=== PATIENT | male | born 2000 | race African-American/Black ===

== ENCOUNTER 2022-10-15 02:41 | Emergency (ER) | payer SELFPAY ==
[2022-10-15 02:55] VITALS: BP 133/107; PULSE 89; RESP 15; TEMP 36.4; O2SAT 98
--- NOTE | 2022-10-15 02:56 | ED.PSYCH ---
HPI - Psych General Chief Complaint: Psychiatric Symptoms Stated Complaint: psych symptoms Time Seen by Provider: 10/15/22 02:42 History of Present Illness HPI Narrative: Patient with reported history of schizophrenia presenting with agitation, found by neighbors wandering the streets, yelling about Syd. Per neighbors, does not take his medications and tries to self medicate. Per patient, he has no complaints and the police sabotaged him and that is why he is here but he does not want to be here. He does not take any medications Review of Systems Review of Systems: CONST: No fever. HEENT: No sore throat C/V: No chest pain RESP: No difficulty breathing GI: No abdominal pain M/S: No joint pain. : No dysuria SKIN: No rash. NEURO: [No headache] PSYCH: [No SI/HI or hallucinations] [facility] Past Medical History Medical History (Updated 10/15/22 @ 05:16 by Lakisha Carrero MD) Schizophrenia Social History Social History Substance use type: does not use Exam Narrative: EXAMINATION OF ORGAN SYSTEMS/BODY AREAS: Constitutional: Vital signs per nursing GENERAL:[No acute distress, non-toxic appearing.] HEAD: Normal with no signs of head trauma. EYES: EOMI, conjunctiva normal ENT: Hearing grossly intact LUNGS: Nonlabored breathing. HEART: [Regular rate and rhythm] ABD: No distension EXT: Normal range of motion SKIN: [No rashes or lesions.] NEURO: [Alert and oriented x 3. No gross focal sensory or strength deficits.] PSYCH: Initially agitated with pressured speech wanting to spread word of Syd, then calm and cooperative, answering questions appropriately. Course Vital Signs Vital signs: Vital Signs Temperature 97.6 F 10/15/22 02:55 Pulse Rate 89 10/15/22 02:55 Respiratory Rate 15 10/15/22 02:55 Blood Pressure 133/107 H 10/15/22 02:55 Pulse Oximetry 98 10/15/22 02:55 Oxygen Delivery Room Air 10/15/22 02:55 Temperature 97.6 F 10/15/22 02:55 Pulse Rate 89 10/15/22 02:55 Respiratory Rate 15 10/15/22 02:55 Blood Pressure 133/107 H 10/15/22 02:55 Pulse Oximetry 98 10/15/22 02:55 Oxygen Delivery Room Air 10/15/22 02:55 MDM - Psych MDM Narrative Medical decision making narrative: ED COURSE AND MEDICAL DECISION MAKINyoM here for psychiatric evaluation. Patient with history of schizophrenia. No focal neurological deficits on exam. Psych labs are ordered and essentially unremarkable. Psychiatric team is consulted and the patient is medically cleared for psych evaluation and disposition. At this time, patient said he does not want to be seen by crisis and he wants to go home, he states that his ride is here. He is not having thoughts of hurting himself, he is answering questions appropriately, does not appear to be acutely psychotic at this time and I cannot hold him against his will. I have let him know that he can always return for any further issues. Lab Data 10/15/22 03:05 10/15/22 03:05 Labs: Lab Results 10/15/22 10/15/22 10/15/22 Range/Units 03:05 03:05 03:05 WBC 6.0 (4.5-10.0) K/mm3 RBC 4.67 (4.6-6.20) M/mm3 Hgb 14.3 (14.0-18.0) g/dL Hct 42.4 (42.0-52.0) % MCV 90.8 (80-100) fl MCH 30.6 (26-34) pg MCHC 33.7 (32-36) g/dl RDW 13.1 (11.5-14.5) % Plt Count 240 (150-375) k/mm3 MPV 11.0 H (7.4-10.4) fl Immature Gran % (Auto) 0.2 (0-0.5) % Neut % (Auto) 53.5 (45.5-73.1) % Lymph % (Auto) 33.9 (18.3-44.2) % Blaine % (Auto) 10.8 H (2.6-8.5) % Eos % (Auto) 1.3 (0-4.4) % Baso % (Auto) 0.3 (0.2-1.2) % Lymph # (Auto) 2.04 (0.9-3.2) K/mm3 Blaine # (Auto) 0.7 H (0.1-0.6) K/mm3 Eos # (Auto) 0.1 (0-0.3) K/mm3 Baso # (Auto) 0.0 (0.0-0.1) K/mm3 Abs Immat Gran (auto) 0.01 (0.00-0.031) K/mm3 Absolute Neuts (auto) 3.2 (1.3-6.7) K/mm3 Absolute Nucleated RBC 0.0 (0.0-0.012) K/mm3 Nucleated RBC % 0.0 (0.0-0.2) % Sodium 143 (
[2022-10-15 03:11] LABS: Basophils Percent Auto 0.3 % (0.2-1.2); Eosinophils Absolute Auto 0.1 K/mm3 (0-0.3); Eosinophils Percent Auto 1.3 % (0-4.4); Hematocrit 42.4 % (42.0-52.0); Hemoglobin 14.3 g/dL (14.0-18.0); Immature Granulocyte Absolute 0.01 K/mm3 (0.00-0.031); Immature Granulocyte Percent A 0.2 % (0-0.5); Lymphocytes Absolute Auto 2.04 K/mm3 (0.9-3.2); Lymphocytes Percent Auto 33.9 % (18.3-44.2); Mean Corpuscular HGB Conc 33.7 g/dl (32-36); Mean Corpuscular Hemoglobin 30.6 pg (26-34); Mean Corpuscular Volume 90.8 fl (80-100); Monocytes Absolute Auto 0.7 K/mm3 (0.1-0.6); Monocytes Percent Auto 10.8 % (2.6-8.5); Neutrophils Absolute Auto 3.2 K/mm3 (1.3-6.7); Neutrophils Percent Auto 53.5 % (45.5-73.1); Platelet Count Result 240 k/mm3 (150-375); Red Blood Count 4.67 M/mm3 (4.6-6.20); Red Cell Distribution Width 13.1 % (11.5-14.5)
[2022-10-15 03:21] LABS: Acetaminophen < 10 ug/mL (10-30); Ethanol < 10 mg/dL (<10); Salicylate < 1.0 mg/dL (2-20)
--- NOTE | 2022-10-15 03:34 | PC.NURSE ---
EMS states that the patient has a hx of schizophrenia and is on an off his medications.
[2022-10-15 03:35] LABS: Alanine Aminotransferase 30 U/L (6-50); Albumin Level 5.4 g/dL (3.5-5.1); Alkaline Phosphatase 72 U/L (38-126); Anion Gap 11 mmol/L (8-16); Aspartate Amino Transferase 48 U/L (17-59); Bilirubin,Total 1.1 mg/dL (0.2-1.3); Blood Urea Nitrogen 13 mg/dL (9-20); Calcium 9.6 mg/dL (8.4-10.2); Carbon Dioxide 29 mmol/L (22-30); Chloride 103 mmol/L (98-107); Estimated Glomerular Filt Rate > 60; Glucose 82 mg/dL (65-110); Potassium 3.2 mmol/L (3.4-5.0); Sodium 143 mmol/L (137-145)
[2022-10-15 03:48] LABS: Influenza A QL RT-PCR Negative (Negative); Influenza B QL RT-PCR Negative (Negative); RSV RNA, RT-PCR Negative (Negative); SARS-CoV-2 RNA PCR Negative
--- NOTE | 2022-10-15 03:48 | PC.NURSE ---
Asked patient he had to urinate and patient stated he had no urgency at the moment.
[2022-10-15 04:39] LABS: Barbiturate Screen Urine Negative (Negative); Benzodiazepines Screen Urine Negative (Negative)
[2022-10-15 04:42] LABS: Appearance Urine Clear (Clear); Bacteria Urine None Seen /hpf; Bilirubin Urine Negative (Negative); Blood Urine Negative (Negative); Color Urine Dark Yellow (Yellow); Glucose Urine UA Negative (Negative); Ketones Urine 2+ mg/dL (Negative); Leukocyte Esterase Ur Negative LEU/UL (Negative); Mucus Urine Present /lpf; Nitrate Urine Negative (Negative); Protein Urine 1+ mg/dL (Negative); RBC Urine 0-2 /hpf (0-2); Specific Grav Ur 1.029 (1.001-1.035); Squamous Epithelial Cell Urine None seen /hpf (Few); WBC Urine 0-5 /hpf; pH Urine 6.5 (5.0-9.0)
[2022-10-15 04:49] LABS: Add Urine Microscopic? YES
--- NOTE | 2022-10-15 04:57 | PC.NURSE ---
When patient initially came in patient was not giving answers to basic questions such as name, , etc. Once report was built the patient became cooperative.
[2022-10-15 04:58] LABS: Amphetamine Screen Urine Negative (Negative); Cannabinoid Screen Urine Positive (Negative); Cocaine Screen Urine Negative (Negative); Methadone Screen Urine Negative (Negative); Opiate Screen Urine Negative (Negative); Phencyclidine Screen Urine Negative (Negative)
--- NOTE | 2022-10-15 05:03 | PC.NURSE ---
crisis called to evaluate patient
--- NOTE | 2022-10-15 05:21 | PC.NURSE ---
Patient refused to let staff obtain discharge vitals. Patient did state he was in no pain.
== END 2022-10-15 05:23 | disposition home or self-care (01) ==
PROVIDERS: Emergency Provider Emergency Medicine
DX: F20.9 Schizophrenia, unspecified (principal); Z20.822 Contact with and (suspected) exposure to COVID-19
CPT/HCPCS: 36415; 80053; 80307; 81001; 85025; 87637; 99281; 99283

== ENCOUNTER 2022-11-11 17:13 | Emergency (ER) | payer SELFPAY ==
[2022-11-11 17:20] VITALS: BP 119/81; PULSE 114; RESP 16; O2SAT 96
--- NOTE | 2022-11-11 17:30 | PC.NURSE ---
Patient roaming halls. yelling at staff and visitors. Patient out ambulance bay and back through front ED doors. Security called. Patient redirected to room. EDP VORB for 2mg ativan and 5mg haldol.
[2022-11-11] MEDS: LORazepam INJ (*CRX) 2 MG/ML VIAL IM (17:35)
[2022-11-11] MEDS: HALOPERIDOL LACTATE 5 MG/ML VIAL IM (17:35)
--- NOTE | 2022-11-11 17:35 | ED.PSYCH ---
HPI - Psych General Chief Complaint: Psychiatric Symptoms <Mu Michel MD - Last Filed: 11/11/22 20:01> Stated Complaint: psych eval <Mu Michel MD - Last Filed: 11/11/22 20:01> Time Seen by Provider: 11/11/22 17:15 <Mu Michel MD - Last Filed: 11/11/22 20:01> History of Present Illness HPI Narrative: This is a 22-year-old male, brought in by EMS after being found walking on the road making bizarre statements. EMS reports he has stated that some of the above and others will go below and that he is the chosen 1. He has denied homicidal or suicidal ideations. <Mu Michel MD - Last Filed: 11/11/22 20:01> Related Data Allergies/Adverse Reactions: Allergies Allergy/AdvReac Type Severity Reaction Status Date / Time No Known Allergies Allergy Verified 11/11/22 17:33 <Mu Michel MD - Last Filed: 11/11/22 20:01> Review of Systems Review of Systems: Review of systems limited due to patient's altered mental status <Mu Michel MD - Last Filed: 11/11/22 20:01> Exam Narrative: GENERAL: Well-developed, well-nourished, appears manic HEAD: Normocephalic, atraumatic. EYES: PERRLA and EOMI. ENT: Nares clear, no rhinorrhea or epistaxis. Mucous membranes moist. Oropharynx without tonsillar hypertrophy exudate or other lesions. CHEST: Clear to auscultation. No respiratory distress. No wheezes rales or rhonchi HEART: Tachycardic with regular rhythm. No murmur heard. Normal peripheral pulses. ABDOMEN: Soft, nontender, nondistended, normal active bowel sounds. EXTREMITIES: Normal range of motion. No edema. SKIN: Warm, dry, no rash. NEURO: No focal deficits. Alert and oriented x3. PSYCH: Appears manic <Mu Michel MD - Last Filed: 11/11/22 20:01> Course Course Emergency Course: 17:16 - Despite being manic, the patient is redirectable and not threatening towards staff. 17:35 - The patient eloped. 17:41 - The patient has return to the emergency department and was reportedly harassing staff. Will chemically sedate with Ativan and Haldol. 19:00 - CBC unremarkable. Chemistries demonstrate mildly elevated calcium of 10.5 but are otherwise unremarkable. TSH within normal limits. Salicylates acetaminophen and ethanol unremarkable. UA and UDS pending. The patient is otherwise medically cleared for psychiatric evaluation. Patient signed out to oncoming ED physician, Dr. Nicole pending psychiatric recommendations. <Mu Michel MD - Last Filed: 11/11/22 20:01> 17:16 - Despite being manic, the patient is redirectable and not threatening towards staff. 17:35 - The patient eloped. 17:41 - The patient has return to the emergency department and was reportedly harassing staff. Will chemically sedate with Ativan and Haldol. 19:00 - CBC unremarkable. Chemistries demonstrate mildly elevated calcium of 10.5 but are otherwise unremarkable. TSH within normal limits. Salicylates acetaminophen and ethanol unremarkable. UA and UDS pending. The patient is otherwise medically cleared for psychiatric evaluation. Patient signed out to oncoming ED physician, Dr. Nicole pending psychiatric recommendations. Patient was medically cleared for psychiatric evaluation patient was seen by the mental health screeners and the patient currently is not a danger to himself or others and was able to contract for safety. Patient will be discharged home to follow-up as an outpatient with a safety plan. <Chapito Nicole MD - Last Filed: 11/12/22 01:13> Vital Signs Vital signs: Vital Signs Pulse Rate 114 H 11/11/22 17:20 Respiratory Rate 16 11/11/22 17:20 Blood Pressure 119/81 11/11/22 17:20 Pulse Oximetry 96 11/11/22 17:20 Oxygen Delivery Room Air 11/11/22 17:20 Pulse Rate 102 H 11/11/22 22:00 Respiratory Rate 16 11/11/22 22:00 Blood Pressure 118/74 11/11/22 22:00 Pulse Oximetry 100 11/11/22 22:00 Oxygen
[2022-11-11 18:08] LABS: Basophils Percent Auto 0.5 % (0.2-1.2); Eosinophils Percent Auto 0.2 % (0-4.4); Hematocrit 45.5 % (42.0-52.0); Hemoglobin 15.3 g/dL (14.0-18.0); Immature Granulocyte Absolute 0.01 K/mm3 (0.00-0.031); Immature Granulocyte Percent A 0.2 % (0-0.5); Lymphocytes Absolute Auto 1.11 K/mm3 (0.9-3.2); Lymphocytes Percent Auto 25.5 % (18.3-44.2); Mean Corpuscular HGB Conc 33.6 g/dl (32-36); Mean Corpuscular Hemoglobin 30.2 pg (26-34); Mean Corpuscular Volume 89.9 fl (80-100); Mean Platelet Volume 10.5 fl (7.4-10.4); Monocytes Absolute Auto 0.3 K/mm3 (0.1-0.6); Monocytes Percent Auto 6.4 % (2.6-8.5); Neutrophils Absolute Auto 2.9 K/mm3 (1.3-6.7); Neutrophils Percent Auto 67.2 % (45.5-73.1); Platelet Count Result 232 k/mm3 (150-375); Red Blood Count 5.06 M/mm3 (4.6-6.20); Red Cell Distribution Width 13.2 % (11.5-14.5); White Blood Count 4.4 K/mm3 (4.5-10.0)
[2022-11-11 18:16] LABS: Acetaminophen < 10 ug/mL (10-30); Ethanol < 10 mg/dL (<10); Salicylate < 1.0 mg/dL (2-20)
[2022-11-11 18:17] LABS: Alanine Aminotransferase 21 U/L (6-50); Albumin Level 5.7 g/dL (3.5-5.1); Alkaline Phosphatase 86 U/L (38-126); Anion Gap 13 mmol/L (8-16); Aspartate Amino Transferase 44 U/L (17-59); Bilirubin,Total 1.8 mg/dL (0.2-1.3); Blood Urea Nitrogen 17 mg/dL (9-20); Calcium 10.5 mg/dL (8.4-10.2); Carbon Dioxide 28 mmol/L (22-30); Chloride 102 mmol/L (98-107); Estimated CRCL calculation 67 ml/min; Estimated Glomerular Filt Rate > 60; Glucose 95 mg/dL (65-110); Potassium 3.7 mmol/L (3.4-5.0); Sodium 143 mmol/L (137-145)
--- NOTE | 2022-11-11 20:46 | PC.NURSE ---
spoke with family regarding patient. Mother states that he has no medical or behavioral conditions that she knows of. She reports that he has been more episcopalian lately, but otherwise he has only had stress with work. She states he quit his job today and it is not abnormal for the patient to walk in attempt to get his thoughts clear.
--- NOTE | 2022-11-11 21:04 | PC.NURSE ---
patient refusing straight catheter. EDP notified.
[2022-11-11 21:55] LABS: Appearance Urine Clear (Clear); Bacteria Urine None Seen /hpf; Bilirubin Urine Negative (Negative); Blood Urine Negative (Negative); Color Urine Dark Yellow (Yellow); Glucose Urine UA Negative (Negative); Hyaline Casts Urine Present /lpf; Ketones Urine 4+ mg/dL (Negative); Leukocyte Esterase Ur Negative LEU/UL (Negative); Nitrate Urine Negative (Negative); Protein Urine 2+ mg/dL (Negative); RBC Urine 0-2 /hpf (0-2); Squamous Epithelial Cell Urine None seen /hpf (Few); WBC Urine 0-5 /hpf; pH Urine 5.5 (5.0-9.0)
[2022-11-11 21:58] LABS: Add Urine Microscopic? YES; Specific Grav Ur 1.037 (1.001-1.035)
[2022-11-11 22:00] VITALS: BP 118/74; PULSE 102; RESP 16; O2SAT 100
[2022-11-11 22:01] LABS: Amphetamine Screen Urine Negative (Negative); Barbiturate Screen Urine Negative (Negative); Benzodiazepines Screen Urine Negative (Negative); Cannabinoid Screen Urine Positive (Negative); Cocaine Screen Urine Negative (Negative); Methadone Screen Urine Negative (Negative); Opiate Screen Urine Negative (Negative); Phencyclidine Screen Urine Negative (Negative)
--- NOTE | 2022-11-11 22:30 | PC.NURSE ---
[facility] contacted. States patient does not meet their criteria. CRISIS to be contacted.
--- NOTE | 2022-11-11 23:14 | PC.NURSE ---
Crisis notified and states they will be there in 60-90 minutes.
[2022-11-12 00:18] LABS: Influenza A QL RT-PCR Negative (Negative); Influenza B QL RT-PCR Negative (Negative); SARS-CoV-2 RNA PCR Negative (Negative)
--- NOTE | 2022-11-12 01:11 | PC.NURSE ---
crisis spoke with patient who created a safety plan. Patient to be released on said safety plan.
== END 2022-11-12 01:44 | disposition home or self-care (01) ==
PROVIDERS: Preventive Medicine Aerospace Medicine; Emergency Provider Emergency Medicine
DX: F30.9 Manic episode, unspecified (principal); Z20.822 Contact with and (suspected) exposure to COVID-19
CPT/HCPCS: 36415; 80053; 80307; 81001; 84443; 85025; 87636; 96372; 99284; J1630; J2060